=== PATIENT | female | born 1970 | race Caucasian/White ===

== ENCOUNTER → 2017-01-11 | Outpatient (CLI) | payer BC ==
[~2017-01-11] MED LIST: AUGMENTIN PO; FLEXERIL10 MG PO; LISINOPRIL PO; LORTAB 10-5001 EACH PO; PERCOCET 5-3251 TAB PO; PERCOCET5/325 PO; PRINIVIL40 MG PO
--- NOTE | ~2017-01-11 | MY29 ---
[facility] A Service of [facility] RADIOLOGY TEXT RESULTS PATIENT: HAKEEM CLINE LOCATION: [facility] : 72 UNIT #: [id number] AGE: [address]: Tamar Kennedy MD SEX: F ORDER DR: [id number] [facility] [address] [place], [place] [address] [id number] O MR#: [id number] Acc #: [id number] NAME: HAKEEM CLINE. : 1970 SEX: F STUDY DATE/TIME: 01/11/2017 11:57 UNIT: [facility] ROOM: STUDY DESCRIPTION: [facility] SCREENING W/ CAD BILAT Attending Physician: Micky Kennedy M.D. Referring Physician: Micky Kennedy M.D. Ordering Physician: Micky Kennedy M.D. Primary Care Physician: Micky Kennedy M.D. MEDICAL IMAGING REPORT This report is preliminary unless electronic signature is present EXAM Bilateral digital screening mammogram with CAD 01/11/2017 HISTORY No personal or family history of breast cancer or current complaints. COMPARISON Bilateral screening mammogram 12/01/2015, 10/18/2014. FINDINGS CC and MLO views were obtained of each breast utilizing digital technique and reviewed with an FDA-approved CAD device. Scattered fibroglandular densities are present bilaterally. There is an overall fibronodular pattern to each breast. No new or suspicious nodule is identified. Skin markers were placed over each breast denoting skin lesions. Benign appearing dystrophic calcifications are demonstrated within the left breast near the 12 o'clock axis. No suspicious microcalcifications or architectural distortion features. IMPRESSION BIRADS category 2. Benign findings. Routine screening mammogram is recommended in 1 year. Patients over the age of 40 are entered into a reminder system with target due date for the next mammogram. A result letter will also be sent to the patient. BIRADS: 2 Benign finding Dictated by... Mechelle Estrada M.D. [facility] A Service of [facility] RADIOLOGY TEXT RESULTS PATIENT: HAKEEM CLINE LOCATION: [facility] : 72 UNIT #: [id number] AGE: [address]: Tamar Kennedy MD SEX: F ORDER DR: THIS IS AN ELECTRONICALLY VERIFIED REPORT Mechelle Estrada M.D. at 01/14/2017 9:28 AM [place] TD: 01/11/2017 14:12 JOB #: [id number] MEDICAL IMAGING REPORT Page 1 of 1 COPY
== END | disposition home or self-care (01) ==
LOC: CWCC 11:36
DX: Z12.31 Encounter for screening mammogram for malignant neoplasm of breast (principal)
CPT/HCPCS: G0202